=== PATIENT | male | born 1965 | race Caucasian/White ===

== ENCOUNTER 2025-05-18 10:11 | Emergency (ER) | payer MEDICAID ==
[~2025-05-18] VITALS: Ht 177.8 cm; Wt 87.0 kg
[2025-05-18 10:14] VITALS: BP 142/88; PULSE 90; RESP 18; TEMP 36.4; O2SAT 98
[2025-05-18 12:15] LABS: INFLUENZA TYPE A Presumptive Negative (Pres. Neg.)
[2025-05-18 12:16] LABS: INFLUENZA TYPE B Presumptive Negative (Pres. Neg.)
[2025-05-18 12:17] LABS: RESPIRATORY SYNCYTIAL VIRUS Not Detected (Not Detectd)
== END 2025-05-18 12:58 | disposition home or self-care (01) ==
LOC: ER 10:34
DX: B34.9 Viral infection, unspecified (principal); Z88.0 Allergy status to penicillin; Z20.822 Contact with and (suspected) exposure to COVID-19
CPT/HCPCS: 71045; 87420; 87426; 87804; 99284

== ENCOUNTER 2025-05-20 18:10 | Emergency (ER) | payer MEDICAID ==
[~2025-05-20] VITALS: Ht 157.5 cm; Wt 87.0 kg
[2025-05-20 18:14] VITALS: O2SAT 97
[2025-05-20] MEDS: MECLIZINE 25MG TABLET PO ONE (19:09)
[2025-05-20 20:41] LABS: BASOPHILS % 0.5 % (0.0-2.0); EOSINOPHILS % 1.9 % (0.0-5.0); HEMATOCRIT. 43.1 % (42.0-52.0); HEMOGLOBIN. 14.1 g/dL (14.0-18.0); LYMPHOCYTES % 27.7 % (20.0-50.0); MEAN PLATELET VOLUME 10.2 fl (7.4-10.4); MONOCYTES % 6.0 % (2.0-8.0); NEUTROPHILS % 63.9 % (40.0-76.0); PLATELET 242 x1000/uL (130-400); RED BLOOD CELL COUNT 4.98 mill/uL (4.7-6.1); RED CELL DISTRIBUTION WIDTH 14.4 % (11.6-14.6)
[2025-05-20 20:49] LABS: CREATININE 1.0 mg/dL (0.6-1.3); ETHANOL BLOOD < 10 mg/dL (<10); UREA NITROGEN BLOOD 16 mg/dL (9-23)
[2025-05-20 20:51] LABS: ASPARTATE AMINOTRANSFERASE 20 IU/L (<34); BILIRUBIN DIRECT 0.2 mg/dL (<=3.0); BILIRUBIN TOTAL 0.4 mg/dL (0.1-1.0); PROTEIN TOTAL 7.6 g/dL (6.0-8.3)
[2025-05-20] MEDS ORDERED: MECL-299 MT (21:18)
[2025-05-20 22:16] VITALS: BP 153/103; PULSE 78; RESP 18; TEMP 36.7; O2SAT 97
== END 2025-05-20 22:17 | disposition home or self-care (01) ==
LOC: ER 18:10
DX: R42 Dizziness and giddiness (principal); F31.9 Bipolar disorder, unspecified; F20.9 Schizophrenia, unspecified; Z79.899 Other long term (current) drug therapy; I10 Essential (primary) hypertension; Z88.0 Allergy status to penicillin
CPT/HCPCS: 80076; 80048; 80320; 83690; 85025; 36415; 99283; J8597; G0480

== ENCOUNTER 2025-05-26 10:43 | Emergency (ER) | payer MEDICAID ==
[~2025-05-26] VITALS: Ht 177.8 cm; Wt 88.0 kg
[~2025-05-26 10:43] MED LIST: MECL-299 MT
[2025-05-26 10:55] VITALS: TEMP 37; O2SAT 97
[2025-05-26 11:57] LABS: BASOPHILS % 0.5 % (0.0-2.0); EOSINOPHILS % 0.5 % (0.0-5.0); HEMATOCRIT. 43.5 % (42.0-52.0); HEMOGLOBIN. 14.0 g/dL (14.0-18.0); LYMPHOCYTES % 10.2 % (20.0-50.0); MEAN PLATELET VOLUME 10.9 fl (7.4-10.4); MONOCYTES % 4.9 % (2.0-8.0); NEUTROPHILS % 83.9 % (40.0-76.0); PLATELET 235 x1000/uL (130-400); RED BLOOD CELL COUNT 4.99 mill/uL (4.7-6.1); RED CELL DISTRIBUTION WIDTH 14.3 % (11.6-14.6)
[2025-05-26 12:10] LABS: CREATININE 1.0 mg/dL (0.6-1.3); UREA NITROGEN BLOOD 16 mg/dL (9-23)
[2025-05-26 12:11] LABS: ETHANOL BLOOD < 10 mg/dL (<10); TROPONIN I HIGH SENSITIVITY < 4 ng/L (3.0-53)
[2025-05-26 12:12] LABS: ASPARTATE AMINOTRANSFERASE 21 IU/L (<34); BILIRUBIN DIRECT 0.2 mg/dL (<=3.0); BILIRUBIN TOTAL 0.6 mg/dL (0.1-1.0)
[2025-05-26 12:13] LABS: PROTEIN TOTAL 7.6 g/dL (6.0-8.3)
[2025-05-26] MEDS ORDERED: IOHEXOL-350 100 ML BOTTLE ONE (12:18)
[2025-05-26 12:24] LABS: INR 1.0
[2025-05-26] MEDS: KETOROLAC 30MG/ML VIAL IV NR (12:37)
[2025-05-26 13:00] VITALS: TEMP 98.6
[2025-05-26 13:46] LABS: CLARITY URINE CLEAR (CLEAR); COLOR URINE YELLOW (YELLOW); GLUCOSE URINE NEGATIVE (NEGATIVE); KETONES URINE TRACE (NEGATIVE); LEUKOCYTE ESTERASE URINE NEGATIVE (NEGATIVE); NITRITE URINE NEGATIVE (NEGATIVE); OCCULT BLOOD URINE NEGATIVE (NEGATIVE); PH URINE 5.5 (4.5-8.0); PROTEIN URINE TRACE (NEGATIVE); SPECIFIC GRAVITY URINE 1.060 (1.005-1.030); UROBILINOGEN URINE 1.0 E.U./dL (0.2-1.0)
[2025-05-26 14:02] LABS: *AMPHETAMINES SCREEN URINE NEGATIVE (NEGATIVE); *BARBITURATES SCREEN URINE NEGATIVE (NEGATIVE); *BENZODIAZEPINES SCREEN URINE NEGATIVE (NEGATIVE); *COCAINE SCREEN URINE NEGATIVE (NEGATIVE); METHADONE URINE SCREEN NEGATIVE (NEGATIVE)
[2025-05-26 14:03] LABS: CANNABINOID URINE SCREEN NEGATIVE (NEGATIVE); ECSTASY MDMA SCREEN URINE NEGATIVE (NEGATIVE); OPIATES URINE SCREEN NEGATIVE (NEGATIVE); PHENCYCLIDINE URINE SCREEN NEGATIVE (NEGATIVE)
[2025-05-26 14:12] LABS: BACTERIA URINE NONE SEEN; HYALINE CASTS URINE 0-5 /lpf; RBC URINE 0-2 /hpf (0-2); SQUAMOUS EPITHELIAL CELL URINE RARE /lpf (RARE/1+); WHITE BLOOD CELL CASTS URINE 0-5 /lpf; YEAST URINE NONE SEEN
[2025-05-26 14:13] LABS: WBC URINE 0-2 /hpf (0-2)
[2025-05-26 17:03] VITALS: BP 149/98; PULSE 100; RESP 17; O2SAT 100
== END 2025-05-26 17:30 | disposition short-term general hospital (02) ==
LOC: ER 10:43 → EDBEDREQ 16:17 → ER 17:30 → CMPBEDREQ 05-27 13:41
DX: F31.9 Bipolar disorder, unspecified (principal); I10 Essential (primary) hypertension; R51.9 Headache, unspecified; R10.2 Pelvic and perineal pain; Z88.0 Allergy status to penicillin; Z20.822 Contact with and (suspected) exposure to COVID-19; Z79.899 Other long term (current) drug therapy
CPT/HCPCS: 80076; 80305; 80048; 81003; 80320; 85025; 85610; 85730; 84484; 36415; 71045; 70496; 70498; 70450; 72131; 93005; 96374; 99291; Q9967; J1885; Z7610; G0480